=== PATIENT | male | born 1970 ===

== ENCOUNTER 2024-07-26 13:35 | Day surgery (SDC) | payer OTHER ==
[2024-07-23 09:06] LABS: PH,URINE 5.5 (5.0-8.0); URINE APPEARANCE Clear; URINE BILIRRUBIN Negative (NEGATIVE); URINE BLOOD Negative; URINE COLOR Yellow; URINE GLUCOSE Negative (NEGATIVE); URINE KETONE 15 (NEGATIVE); URINE LEUKOCYTE Negative; URINE NITRATE Negative; URINE PROTEIN Negative (NEGATIVE); URINE UROBILINOGEN 0.2 E.U./dl
[2024-07-23 09:10] LABS: HEMATOCRIT 45.2 % (39.0-48.0); HEMOGLOBIN 15.2 g/dL (13-16.00); MEAN CELL VOLUME 87.4 fL (80.0-100.00); MEAN CORPUSCULAR HEMOGLOBIN 29.4 pg (27.00-32.0); MEAN CORPUSCULAR HGB CONC 33.6 g/dl (32.0-36.0); PLATELET COUNT 229 K/uL (150-450); RED BLOOD COUNT 5.18 M/uL (4.00-6.00); RED CELL DISTRIBUTION WIDTH 13.5 % (11.5-14.5)
[2024-07-23 09:11] LABS: URINE RBC 2.7 uL (0.0-20.8); URINE WBC 1.8 uL (0.0-23.2)
[2024-07-23 09:18] LABS: URINE BACTERIA 1.2 uL (0.0-1933); URINE CAST 0.15 uL (0.0-1.40); URINE EPITHELIAL CELLS 0.3 uL (0.0-38.8)
[2024-07-23 09:25] LABS: INR 0.99; PARTIAL THROMBOPLASTIN TIME 30.8 SECONDS (22.0-34.0); PROTHROMBIN TIME 10.8 SECONDS (9.0-11.5)
[2024-07-23 09:26] VITALS: BP 152/92
[2024-07-23 09:49] LABS: ALBUMIN 4.4 gm/dL (3.4-5.0); BILIRUBIN TOTAL 0.49 mg/dL (0.3-1.2); CALCIUM 9.4 mg/dL (8.5-10.1); CREATININE SERUM 0.98 mg/dL (0.70-1.30); GFR 79.41; GLOBULINA 3.3 G/DL (2.4-3.5); POTASSIUM 4.26 mEq/L (3.5-5.1); TOTAL PROTEIN 7.7 gm/dL (6.4-8.2)
[~2024-07-26] VITALS: Ht 172.7 cm; Wt 90.7 kg
[2024-07-26] MEDS ORDERED: NEURONTIN300 MG PO (15:06)
[2024-07-26] MEDS ORDERED: MIRALAX17 GM PO (15:06)
[2024-07-26] MEDS ORDERED: TYLENOL ARTHRI650 MG PO (15:06)
[2024-07-26] MEDS ORDERED: KETO10TA2 PO (15:06)
[2024-07-26] MEDS ORDERED: TRAMADOL HCL50 MG PO (15:06)
[2024-07-26] MEDS ORDERED: BUPIVACAINE HCL 30 ML VIAL IJ ONE (19:15)
[2024-07-26] MEDS ORDERED: CEFAZOLIN SODIUM 2,000 MG in 0.9 % SODIUM CHLORIDE 100 ML IV ONE (19:15)
[2024-07-26] MEDS ORDERED: MORPHINE SULFATE 4 MG/ML VIAL IV ONE (20:45)
== END 2024-07-26 21:50 | disposition home or self-care (01) ==
LOC: CIR.AMB 13:35
PROVIDERS: ATTEND Surgery
DX: K42.0 Umbilical hernia with obstruction, without gangrene (principal); K40.90 Unilateral inguinal hernia, without obstruction or gangrene, not specified as recurrent
CPT/HCPCS: 49594; 49650; C1781